=== PATIENT | male | born 1960 | race Hispanic/Latino ===

== ENCOUNTER 2021-08-06 07:31 | Day surgery (SDC) | payer BC ==
[~2021-08-06 07:31] MED LIST: SODIUM CHLORIDE 0.9% 1000 ML 1,000 ML IV SCH
--- NOTE | 2021-08-06 08:14 | Anesthesia Day of Surgery ---
Anesthesia Day of Surgery - Day of Surgery Patient Examined: Yes Patient H&P Reviewed: Yes Patient is NPO: Yes
--- NOTE | 2021-08-06 08:14 | Anesthesia Consultation ---
Anesthesia Consult and Med Hx Date of service: 08/06/21 - Airway Anesthetic Teeth Evaluation: Good ROM Head & Neck: Adequate Mental/Hyoid Distance: Adequate Mallampati Class: Class III Intubation Access Assessment: Possibly Difficult - Pre-Operative Health Status ASA Pre-Surgery Classification: ASA2 Proposed Anesthetic Plan: MAC - Pulmonary Hx Smoking: Yes (former smoker quit 4yrs) Hx Respiratory Symptoms: No - Cardiovascular System Hx Hypertension: Yes (took antihypertensives this morning) Hx Heart Attack/AMI: No Hx Percutaneous Transluminal Coronary Angioplasty (PTCA): No - Central Nervous System CVA: No - Endocrine Hx Renal Disease: No Hx Liver Disease: No Hx Insulin Dependent Diabetes: No Hx Non-Insulin Dependent Diabetes: No Hx Thyroid Disease: No - Other Systems Hx Obesity: Yes (BMI 37) - Additional Comments Anesthesia Medical History Comments: No hx anesthetic complications.
[2021-08-06] MEDS ORDERED: MIDAZOLAM 2 MG/2 ML INJ ONE (08:29)
[2021-08-06] MEDS ORDERED: propofoL 200 MG/20 ML VIAL IV ONE ×2 (09:11)
[2021-08-06] MEDS ORDERED: LIDOCAINE MPF (2%) 20 MG/1 ML VIAL 5 ML ONE (09:11)
--- NOTE | 2021-08-06 10:05 | Procedure Note ---
Date of procedure: 08/06/21 Pre-op diagnosis: Dyspepsia/ P/H/O Peptoc Ulcer disease/ ColonPolyp Screening Post-op diagnosis: other (Gastric Ulcer and Gastritis/ Duodenitis and a Small,Duodenal Ulcer/Esophagitis/ Solitary,Small Rectal Polyp/Few, Left ColonDiverticuli and a solitary Proximal colon Diverticuli/No Internal Hemorrhoids) Procedure: EGD with biopsy and Colonoscopy with Biopsy [place] [facility] [place] [facility] [place]: GOVIND DESHPANDE Estimated blood loss: minimal Pathology: list Specimen disposition: to lab Condition: stable Disposition: same day (Treat with PPI,avoid aspirin and NSAID for 5 days; otherwise resume home medication and encourage fiber intake and F/U in 1 to 2 weeks ([phone]).)
--- NOTE | 2021-08-06 10:33 | Post Anesthesia Evaluation ---
- Post Anesthesia Evaluation Patient Participated: Yes Airway Patent: Yes Stable Respiratory Function: Yes Nausea/Vomiting: No Temp > 96.8F: Yes Pain Manageable: Yes Adequeate Hydration: Yes Anesthesia Complications: No
--- NOTE | 2021-08-06 13:26 | Operative Report ---
DATE OF SURGERY: 08/06/2021 PROCEDURE PERFORMED: EGD with biopsy. INDICATIONS: This is a 60-year-old white male who has a prior history of peptic ulcer disease. Lately has been having some dyspeptic symptoms. EGD was done to assess for the dyspeptic symptoms and make sure that there was not any recurrence of any peptic ulcer disease. DESCRIPTION OF PROCEDURE: Procedure was done after getting informed consent with MAC anesthesia. Procedure was done after the patient was sedated, instrument was then passed through the hypopharynx into the esophagus, which showed some [id number] distal erosive esophagitis. Biopsy was done from the distal and the mid esophagus to assess for the severity of the erosive esophagitis and also to assess for any associated eosinophilic esophagitis. Stomach showed an antral ulcer. Biopsy was done from the gastric antrum from the ulcer site. Additional biopsy was done from the gastric antrum, gastric body and angular incisura to rule out for H. pylori and atrophic gastritis. The pylorus is patent. The duodenum in the first and second portion had showed evidence of duodenitis and a small duodenal ulcer. There was minimal bleeding from the biopsy sites. No complications associated with the procedure. ASSESSMENT: Dyspepsia, prior history of peptic ulcer disease, recurrence of gastric ulcer, gastritis as well as esophagitis. PLAN: To have the patient avoid aspirin and aspirin-related products for the next few days and treat the patient with PPI, have the patient follow up in the office in 1-2 weeks' time and colonoscopy is to be done as part of colon polyp screening. Procedure was done in the GI lab with assistance of the GI lab team, which included the GI nurse, pyrotechnics press tender and with assistance of anesthesia. TID: [id number] RECEIPT: [id number] TREY/RUDOLPH/BLANCHE
--- NOTE | 2021-08-06 14:12 | Operative Report ---
DATE OF SURGERY: 08/06/2021 PROCEDURE: Colonoscopy. INDICATIONS: This is a 60-year-old white male, who had an EGD done prior to the colonoscopy, which showed presence of a gastric ulcer, gastritis, and duodenitis, and a small duodenal ulcer. Colonoscopy was done as part of colon polyp screening. He has a prior history of colon polyps. DESCRIPTION OF PROCEDURE: Procedure was done after getting informed consent with MAC anesthesia. Initial rectal examination was unremarkable. The instrument was passed through the rectum onto the cecum, which was identified by the ileocecal valve and appendiceal orifice. Visualization was fair to good. The cecum was also viewed on the retroverted view; no additional pathology was noted. There was one solitary diverticula noted in the cecum. The remaining part of the cecum, the ascending colon, and transverse colon showed normal mucosa. There were a few scattered diverticula noted in the left colon. In the rectosigmoid area and the rectal portion, there was a small solitary polyp noted, possibly hyperplastic that was removed by cold biopsy, and the rectum appeared normal on the retroverted view. There was minimal bleeding associated with the procedure. No complications associated with the procedure. ASSESSMENT: Colon polyp screening, solitary rectal polyp, and few left colon diverticula. PLAN: To encourage the patient to take fiber supplements, also to treat the patient with PPI because of the EGD findings of a gastric ulcer as well as duodenitis and a small duodenal ulcer. Have the patient avoid aspirin and aspirin-related products for the next few days and follow up in the office in 1-2 weeks' time. TID: [id number] RECEIPT: [id number] TREY/MYRNA/BLANCHE
[2021-08-06 19:07] VITALS: BP 126/79
== END 2021-08-06 07:32 | disposition home or self-care (01) ==
LOC: GIO 07:31
DX: K92.2 Gastrointestinal hemorrhage, unspecified (principal); R10.13 Epigastric pain; K64.0 First degree hemorrhoids; K63.5 Polyp of colon; K21.00 Gastro-esophageal reflux disease with esophagitis, without bleeding; K29.50 Unspecified chronic gastritis without bleeding; K63.89 Other specified diseases of intestine; K31.89 Other diseases of stomach and duodenum; I10 Essential (primary) hypertension; E66.9 Obesity, unspecified; F41.9 Anxiety disorder, unspecified; Z87.891 Personal history of nicotine dependence; Z79.899 Other long term (current) drug therapy; Z98.890 Other specified postprocedural states
CPT/HCPCS: 43239; 45380; 88305; 88342; J2250; J2704; J7030

== ENCOUNTER 2021-12-10 06:48 | Day surgery (SDC) | payer BC ==
[2021-12-10] MEDS ORDERED: SODIUM CHLORIDE 0.9% 1000 ML 1,000 ML IV SCH (07:00)
--- NOTE | 2021-12-10 07:37 | Anesthesia Day of Surgery ---
Anesthesia Day of Surgery - Day of Surgery Patient Examined: Yes Patient H&P Reviewed: Yes Patient is NPO: Yes
--- NOTE | 2021-12-10 07:37 | Anesthesia Consultation ---
Anesthesia Consult and Med Hx Date of service: 12/10/21 - Airway Anesthetic Teeth Evaluation: Good ROM Head & Neck: Adequate Mental/Hyoid Distance: Adequate Mallampati Class: Class II Intubation Access Assessment: Probably Good - Pulmonary Exam CTA: Yes - Cardiac Exam Cardiac Exam: RRR - Pre-Operative Health Status ASA Pre-Surgery Classification: ASA2 Proposed Anesthetic Plan: MAC - Pulmonary Hx Smoking: Yes (former smoker quit 4yrs) Hx Respiratory Symptoms: No - Cardiovascular System Hx Hypertension: Yes (took antihypertensives this morning) Hx Heart Attack/AMI: No Hx Percutaneous Transluminal Coronary Angioplasty (PTCA): No - Central Nervous System CVA: No - Endocrine Hx Renal Disease: No Hx Liver Disease: No Hx Insulin Dependent Diabetes: No Hx Non-Insulin Dependent Diabetes: No Hx Thyroid Disease: No - Other Systems Hx Obesity: Yes (BMI 37)
[2021-12-10] MEDS ORDERED: propofoL 200 MG/20 ML VIAL IV ONE (08:39)
--- NOTE | 2021-12-10 08:59 | Procedure Note ---
Date of procedure: 12/10/20 Pre-op diagnosis: H/O Gastric Ulcer Post-op diagnosis: other (No Gastric Ulcer now/ Gastric Erosion and Gastritis/ Duodenal Erosion/ Mild to Moderate Erosive Esiphagitis/ R/O Eosinophilic Esophatitis) Procedure: EGD with Biopsy [place] [facility] [place]geon: GOVIND DESHPANDE Estimated blood loss: minimal Pathology: list Specimen disposition: to lab Condition: stable Disposition: same day (Avoid aspirin and NSAID for 5 days, otherwise resume previous medication and treat with PPI and F/U in 1 to 2 weeks ([phone]).)
--- NOTE | 2021-12-10 09:11 | Operative Report ---
DATE OF SURGERY: 12/10/2021 PROCEDURE PERFORMED: EGD with biopsy. INDICATIONS: This is a 61-year-old white male who had a prior history of a gastric ulcer. EGD was done to make sure that there was not any recurrence of ulcers and that the ulcer had healed. DESCRIPTION OF PROCEDURE: Procedure was done after getting informed consent with MAC anesthesia. The instrument was passed through the hypopharynx into the esophagus, which showed some [id number] distal erosive esophagitis. Photodocumentation and biopsy was done from the distal esophagus to assess for the severity of the erosive esophagitis and from the mid esophagus to assess for eosinophilic esophagitis. Stomach showed antral erosion and gastritis. No ulcers were noted in the straight or the retroverted view. The pylorus was patent. The duodenum in the bulb showed duodenal erosion, but no ulcers and the second part appeared normal. Biopsy was also done from the body, gastric, antrum and angular incisura to assess for possible H. pylori gastritis. There was minimal bleeding associated with the biopsies and no complications associated with the procedure. ASSESSMENT: History of gastric ulcer, none now; gastric erosion; gastritis; duodenitis; mild to moderate erosive esophagitis; rule out eosinophilic esophagitis. PLAN: To treat the patient with PPI, have the patient avoid aspirin and aspirin-related products for the next few days and follow up in the office in 1-2 weeks' time. Procedure was done in the GI lab with assistance of the GI lab team, which included the GI nurse, the traffic engineering technician and with assistance of Anesthesia. TID: [id number] RECEIPT: [id number] ILDEFONSO
[2021-12-10 15:38] VITALS: BP 123/61
== END 2021-12-10 06:49 | disposition home or self-care (01) ==
LOC: GIO 06:48
DX: K25.9 Gastric ulcer, unspecified as acute or chronic, without hemorrhage or perforation (principal); K29.70 Gastritis, unspecified, without bleeding; K29.80 Duodenitis without bleeding; K20.90 Esophagitis, unspecified without bleeding; K31.89 Other diseases of stomach and duodenum; I10 Essential (primary) hypertension; E66.9 Obesity, unspecified; F41.9 Anxiety disorder, unspecified; Z79.899 Other long term (current) drug therapy; Z87.891 Personal history of nicotine dependence; Z98.890 Other specified postprocedural states; Z68.35 Body mass index [BMI] 35.0-35.9, adult
CPT/HCPCS: 43239; 88305; 88342; J2704; J7030; J7120; Q0162